=== PATIENT | female | born 1995 | race Caucasian/White ===

== ENCOUNTER 2016-02-18 00:42 | Outpatient (CLI) | payer OTHER ==
[~2016-02-18] VITALS: Ht 160 cm; Wt 59.0 kg
[~2016-02-18 00:42] MED LIST: DOXYCYCLINE HY100 M3 PO; FLONASE16 G1 BOTH NARES; MOTRIN400 MG PO; MUCINEX D ER T1 EACH PO; NYSTATIN100000 UN1 PO; PRENATAL TABLE1 EAC3 PO; TESSALON PERLE100 MG PO; ZITHROMAX250 MG PO
[2016-02-18 01:13] VITALS: BP 120/73
[2016-02-18 02:26] VITALS: BP 117/60
[2016-02-18 03:39] VITALS: BP 101/51
[2016-02-18 03:55] VITALS: BP 104/55
== END 2016-02-18 04:30 | disposition home or self-care (01) ==
LOC: LDRP-OP 00:42 → 2WEST 00:43 → LDRP-OP 03-28 19:58
DX: O47.1 False labor at or after 37 completed weeks of gestation (principal); Z3A.38 38 weeks gestation of pregnancy
CPT/HCPCS: 59025; G0378

== ENCOUNTER 2016-02-25 08:20 | Inpatient (IN) | payer OTHER ==
[2016-02-25] VITALS (19 sets, daily range): BP systolic 107–142; BP diastolic 53–84
[2016-02-25 10:00] LABS: EOSINOPHIL (%) 0.1 % (0-5); HEMATOCRIT 30.2 % (36.0-46.0); IMMATURE GRANULOCYTE (%) 0.2 % (0.0-0.7); LYMPHOCYTE COUNT 1.2 K/uL (1.0-2.8); MCH 25.2 PG (29.0-34.0); MCHC 31.5 G/DL (30.0-36.0); MCV 80.1 FL (83-99); MEAN PLAT.VOLUME 10.6 uM^3 (9.5-12.4); MONOCYTE (%) 7.2 % (3-12); NEUTROPHIL (%) 83.6 % (45-76); NEUTROPHIL COUNT 11.5 K/uL (1.8-6.4); PLATELET COUNT 269 K/uL (156-360); RBC DIS.WIDTH-CV 14.9 % (11.8-14.6); RBC DIS.WIDTH-SD 43.8 % (39-53); RED BLOOD COUNT 3.77 M/uL (3.80-5.20); WHITE BLOOD COUNT 13.7 K/uL (4.1-10.2)
[2016-02-26 02:42] VITALS: BP 128/78
[2016-02-26 08:11] VITALS: BP 122/57
[2016-02-26 08:58] LABS: HEMATOCRIT 29.7 % (36.0-46.0); MCH 24.4 PG (29.0-34.0); MCHC 30.6 G/DL (30.0-36.0); MCV 79.6 FL (83-99); PLATELET COUNT 214 K/uL (156-360); RBC DIS.WIDTH-CV 15.1 % (11.8-14.6); RBC DIS.WIDTH-SD 43.9 % (39-53); RED BLOOD COUNT 3.73 M/uL (3.80-5.20); WHITE BLOOD COUNT 17.4 K/uL (4.1-10.2)
[2016-02-26 09:05] LABS: EOSINOPHIL (%) 0 % (0-5); IMMATURE GRANULOCYTE (%) 0.3 % (0.0-0.7); IMMATURE GRANULOCYTE COUNT 0.1 K/uL; LYMPHOCYTE COUNT 1.1 K/uL (1.0-2.8); MONOCYTE COUNT 0.9 K/uL (0-0.8); NEUTROPHIL (%) 88.3 % (45-76); NEUTROPHIL COUNT 15.4 K/uL (1.8-6.4)
[2016-02-26 11:27] VITALS: BP 110/56
[2016-02-26 15:22] VITALS: BP 104/63
[2016-02-26 19:08] VITALS: BP 113/64
[2016-02-26 23:36] VITALS: BP 113/67
[2016-02-27 00:11] VITALS: BP 118/72
[2016-02-27 01:58] VITALS: BP 133/79
[2016-02-27 07:31] VITALS: BP 124/63
[2016-02-27 11:56] VITALS: BP 116/69
[2016-02-27 14:39] VITALS: BP 129/67
[2016-02-27 22:47] VITALS: BP 124/65
[2016-02-28 07:22] VITALS: BP 122/58
[2016-02-28 14:52] VITALS: BP 131/70
[2016-02-28 22:50] VITALS: BP 112/54
[2016-02-29 07:46] VITALS: BP 117/80
[2016-02-29] MEDS ORDERED: IBUPROFEN800 MG PO (08:58)
[2016-02-29] MEDS ORDERED: ENDOCET 5-3251 EACH PO (08:58)
[2016-02-29 15:16] VITALS: BP 125/76
== END 2016-02-29 16:40 | disposition home or self-care (01) | DRG 765 ==
LOC: LDRP-OP 08:20 → 2WEST 08:21 → LDRP-OP 03-28 04:44
PROVIDERS: Advanced Practice Midwife; Obstetrics & Gynecology
PROC: 00HU33Z Insertion of Infusion Device into Spinal Canal, Percutaneous Approach (ICD-10-PCS; principal; 2016-02-25)
PROC: 3E0R3CZ (ICD-10-PCS; principal; 2016-02-25)
PROC: 10D00Z1 Extraction of Products of Conception, Low, Open Approach (ICD-10-PCS; principal; 2016-02-25)
DX: O76 Abnormality in fetal heart rate and rhythm complicating labor and delivery (principal); O41.1230 Chorioamnionitis, third trimester, not applicable or unspecified; D62 Acute posthemorrhagic anemia; O99.824 Streptococcus B carrier state complicating childbirth; Z3A.39 39 weeks gestation of pregnancy; Z37.0 Single live birth; O65.9 Obstructed labor due to maternal pelvic abnormality, unspecified; O99.02 Anemia complicating childbirth
CPT/HCPCS: 85025; 86850; 86900; 86901; 87070; 87075; 87077; 87181; 87185; 87205; 88307; C1755; J0290; J0690; J1580; J2175; J2270; J2405; J3010; J7050; J7120

== ENCOUNTER 2017-04-27 11:29 | Outpatient (CLI) | payer OTHER ==
[~2017-04-27 11:29] MED LIST changes: +ENDOCET 5-3251 EACH PO; +IBUPROFEN800 MG PO
[2017-04-27 11:50] VITALS: BP 100/57
[2017-04-27 12:59] VITALS: BP 99/55
[2017-04-27 15:16] LABS: BASOPHIL (%) 0 % (0-1); EOSINOPHIL (%) 0 % (0-5); HEMATOCRIT 30.3 % (36.0-46.0); HEMOGLOBIN 9.5 G/DL (11.9-15.5); IMMATURE GRANULOCYTE (%) 0.2 % (0.0-0.7); LYMPHOCYTE (%) 9.7 % (15-42); LYMPHOCYTE COUNT 0.4 K/uL (1.0-2.8); MCH 25.9 PG (29.0-34.0); MCHC 31.4 G/DL (30.0-36.0); MCV 82.6 FL (83-99); MONOCYTE (%) 7.8 % (3-12); MONOCYTE COUNT 0.3 K/uL (0-0.8); NEUTROPHIL (%) 82.3 % (45-76); NEUTROPHIL COUNT 3.5 K/uL (1.8-6.4); PLATELET COUNT 241 K/uL (156-360); RBC DIS.WIDTH-CV 13.9 % (11.8-14.6); RBC DIS.WIDTH-SD 41.3 % (39-53); RED BLOOD COUNT 3.67 M/uL (3.80-5.20); WHITE BLOOD COUNT 4.2 K/uL (4.1-10.2)
[2017-04-27 15:42] LABS: ALKALINE PHOSPHATASE 139 IU/L (3-129); ALT (GPT) 10 IU/L (3-49); AST (GOT) 17 IU/L (2-34); CHLORIDE 101 MEQ/L (99-109); CREATININE 0.5 MG/DL (0.6-1.3); GFR ESTIMATE (CALCULATED) > 59 mL/min/; GLUCOSE 89 mg/dL (70-99); POTASSIUM 4.1 MEQ/L (3.7-5.4); SODIUM 137 MEQ/L (136-147); TOTAL BILIRUBIN 0.5 MG/DL (0.0-1.0); TOTAL PROTEIN 5.8 G/DL (6.4-8.3); UREA NITROGEN (BUN) 7 mg/dL (9-23)
== END 2017-04-27 15:10 | disposition home or self-care (01) ==
LOC: LDRP-OP → 2WEST 11:30 → LDRP-OP 06-24 14:11
PROVIDERS: Advanced Practice Midwife
DX: O99.89 Other specified diseases and conditions complicating pregnancy, childbirth and the puerperium (principal); O21.9 Vomiting of pregnancy, unspecified; Z3A.36 36 weeks gestation of pregnancy; R19.7 Diarrhea, unspecified; O99.013 Anemia complicating pregnancy, third trimester; D64.9 Anemia, unspecified
CPT/HCPCS: 59025; 80053; 85025; G0378

== ENCOUNTER 2017-05-19 19:34 | Inpatient (IN) | payer OTHER ==
[~2017-05-19] VITALS: Ht 160 cm; Wt 55.7 kg
[2017-05-19 20:23] VITALS: BP 119/64
[2017-05-19 20:40] LABS: BASOPHIL (%) 0.2 % (0-1); EOSINOPHIL (%) 0.5 % (0-5); EOSINOPHIL COUNT 0.1 K/uL (0-0.3); HEMATOCRIT 30.3 % (36.0-46.0); HEMOGLOBIN 9.6 G/DL (11.9-15.5); IMMATURE GRANULOCYTE (%) 0.4 % (0.0-0.7); LYMPHOCYTE (%) 17.1 % (15-42); LYMPHOCYTE COUNT 1.6 K/uL (1.0-2.8); MCHC 31.7 G/DL (30.0-36.0); MCV 78.9 FL (83-99); MONOCYTE (%) 5.9 % (3-12); MONOCYTE COUNT 0.5 K/uL (0-0.8); NEUTROPHIL (%) 75.9 % (45-76); NEUTROPHIL COUNT 6.9 K/uL (1.8-6.4); PLATELET COUNT 264 K/uL (156-360); RBC DIS.WIDTH-CV 15.6 % (11.8-14.6); RBC DIS.WIDTH-SD 43.9 % (39-53); RED BLOOD COUNT 3.84 M/uL (3.80-5.20); WHITE BLOOD COUNT 9.2 K/uL (4.1-10.2)
[2017-05-19 20:58] LABS: APPEARANCE SL.HAZY ((CLEAR)); BILIRUBIN NEGATIVE; BLOOD NEGATIVE; COLOR STRAW ((YELLOW)); GLUCOSE (STRIP) NEGATIVE; KETONES NEGATIVE; LEUKOCYTES MODERATE; NITRITE NEGATIVE; PROTEIN (STRIP) NEGATIVE; SPECIFIC GRAVITY 1.008 (1.000-1.030); UROBILINOGEN 0.2 MG/DL (0.2-1.0)
[2017-05-19 21:10] LABS: BACTERIA 2+ /HPF; EPITHELIAL CELLS 1+ /HPF; MUCUS TRACE /LPF; RED BLOOD CELLS 0-5 /HPF (0-5); UCUL ADDED? YES
[2017-05-19 21:45] LABS: AMPHETAMINE NEGATIVE (500 ng/mL); BARBITURATES NEGATIVE (200 ng/mL); BENZODIAZEPINES NEGATIVE (150 ng/mL); BUPRENORPHINE NEGATIVE (10 ng/mL); COCAINE NEGATIVE (150 ng/mL); METHADONE NEGATIVE (200 ng/mL); METHAMPHETAMINE NEGATIVE (500 ng/mL); OPIATES (MORPHINE) NEGATIVE (100 ng/mL); OXYCODONE NEGATIVE (100 ng/mL); PHENCYCLIDINE NEGATIVE (25 ng/mL); PROPOXYPHENE NEGATIVE (300 ng/mL); THC CANNABINOIDS NEGATIVE (50 ng/mL); TRICYCLIC ANTIDEPRESSANTS NEGATIVE (300 ng/mL)
[2017-05-19 23:13] VITALS: BP 113/56
[2017-05-20] VITALS (7 sets, daily range): BP systolic 100–122; BP diastolic 56–63
[2017-05-20 07:00] LABS: BASOPHIL (%) 0.2 % (0-1); EOSINOPHIL (%) 0.2 % (0-5); HEMATOCRIT 29.4 % (36.0-46.0); IMMATURE GRANULOCYTE (%) 0.4 % (0.0-0.7); LYMPHOCYTE (%) 14.6 % (15-42); LYMPHOCYTE COUNT 1.5 K/uL (1.0-2.8); MCH 24.9 PG (29.0-34.0); MCHC 30.6 G/DL (30.0-36.0); MCV 81.2 FL (83-99); MONOCYTE COUNT 0.5 K/uL (0-0.8); NEUTROPHIL (%) 79.6 % (45-76); NEUTROPHIL COUNT 8.1 K/uL (1.8-6.4); PLATELET COUNT 212 K/uL (156-360); RBC DIS.WIDTH-CV 15.5 % (11.8-14.6); RBC DIS.WIDTH-SD 45.1 % (39-53); RED BLOOD COUNT 3.62 M/uL (3.80-5.20); WHITE BLOOD COUNT 10.2 K/uL (4.1-10.2)
[2017-05-21 07:24] VITALS: BP 118/69
[2017-05-21] MEDS ORDERED: FERROUS SULFAT325 MG PO (08:39)
[2017-05-21] MEDS ORDERED: ENDOCET 5-3251 EACH PO (08:39)
[2017-05-21] MEDS ORDERED: IBUPROFEN800 MG PO (08:39)
[2017-05-21 10:51] VITALS: BP 117/56
[2017-05-21 14:47] VITALS: BP 103/54
== END 2017-05-21 17:30 | disposition home or self-care (01) | DRG 766 ==
LOC: LDRP-OP → 2WEST 19:37 → LDRP-OP 06-24 15:25
PROVIDERS: Obstetrics & Gynecology
PROC: 10D00Z1 Extraction of Products of Conception, Low, Open Approach (ICD-10-PCS; principal; 2017-05-19)
DX: O34.211 Maternal care for low transverse scar from previous cesarean delivery (principal); O99.02 Anemia complicating childbirth; D50.9 Iron deficiency anemia, unspecified; O69.81X0 Labor and delivery complicated by cord around neck, without compression, not applicable or unspecified; O99.72 Diseases of the skin and subcutaneous tissue complicating childbirth; L91.0 Hypertrophic scar; Z3A.39 39 weeks gestation of pregnancy; Z37.0 Single live birth
CPT/HCPCS: 81003; 85025; 86850; 86900; 86901; 86920; 87086; J0690; J1885; J2274; J2405; J7120

== ENCOUNTER 2017-10-03 11:50 | Emergency (ER) | payer OTHER ==
[~2017-10-03] VITALS: Ht 160 cm; Wt 46.4 kg
[~2017-10-03 11:50] MED LIST changes: +FERROUS SULFAT325 MG PO
[2017-10-03] MEDS ORDERED: MOTRIN400 MG PO (12:51)
[2017-10-03 13:16] VITALS: BP 128/73
== END 2017-10-03 13:19 | disposition home or self-care (01) ==
LOC: EME 11:50
DX: S60.221A Contusion of right hand, initial encounter (principal); S60.211A Contusion of right wrist, initial encounter; M79.89 Other specified soft tissue disorders; W22.09XA Striking against other stationary object, initial encounter
CPT/HCPCS: 73090; 73110; 73130; 99281; 99283